=== PATIENT | male | born 1985 | race Caucasian/White ===

== ENCOUNTER → 2020-06-11 | Outpatient (CLI) | payer BC ==
--- NOTE | 2020-07-06 17:39 | REP ---
RIGHT KNEE SERIES: CLINICAL: Pain and decreased range of motion with recent trauma. TECHNIQUE: AP, lateral, bilateral oblique and sunrise views of the right knee. FINDINGS: Examination demonstrates soft tissue swelling and effusion. The lateral view cannot exclude small posterior bony fragments suggesting the possibility of acute fracture. IMPRESSION: 1. Soft tissue swelling and effusion. 2. Possible bony fragments suggesting acute fracture. Consider CT of the knee and/or MRI for further investigation. JOY
--- NOTE | 2020-07-06 17:40 | REP ---
RIGHT ANKLE RADIOGRAPHS: CLINICAL: Recent trauma. TECHNIQUE: AP, lateral, bilateral oblique views of the right ankle. FINDINGS: Mild swelling. No acute fracture or dislocation. The ankle mortise is intact. No subcutaneous emphysema or foreign body. IMPRESSION: Mild swelling. No acute fracture or dislocation. MTDD
== END ==
LOC: M LRY 14:59
PROVIDERS: ATTEND Physician Assistant
DX: S80.01XA Contusion of right knee, initial encounter (principal); X58.XXXA Exposure to other specified factors, initial encounter; Y92.9 Unspecified place or not applicable